=== PATIENT | female | born 2000 | race Hispanic/Latino ===

== ENCOUNTER 2021-02-25 22:27 | Emergency (ER) | payer SELFPAY ==
--- NOTE | 2021-02-25 22:42 | Emergency Department Report ---
ED Seizure HPI - General Stated Complaint: SEIZURES Time Seen by Provider: 02/25/21 22:38 - History of Present Illness Initial Comments: Patient presents by EMS for a seizure. She is actually in the process of being transferred from a facility in [place] to a psychiatric facility and [facility]. Patient had 3 seizures in route. They called the receiving facility who then refused to take the patient and stated that the patient needed to be directed to the closest emergency department. EMS came here. History is obtained from them as the patient is postictal. She does have a known history of seizures. Apparently at [place] she was on a hold because she was refusing to take her seizure medications "in order to hurt herself." She is on a 1014 which she has been provided by EMS. - Related Data Allergies Allergy/AdvReac Type Severity Reaction Status Date / Time No Known Allergies Allergy Verified 02/25/21 23:00 ED Review of Systems ROS: Stated complaint: SEIZURES Other details as noted in HPI Comment: Unobtainable due to pts medical conditions (Postictal) ED Past Medical Hx - Past Medical History Hx Seizures: Yes (On Keppra) - Family History Family history: other (Cannot be obtained from the patient secondary to postictal state) - Social History Substance Use Type: Other (Cannot be obtained for the patient secondary to postictal state) ED Physical Exam - General Limitations: Altered Mental Status (Postictal), Other (Pulse ox noted and normal) General appearance: postictal - Head Head exam: Present: atraumatic, normocephalic, normal inspection - Eye Eye exam: Present: normal appearance, EOMI. Absent: scleral icterus - ENT ENT exam: Present: mucous membranes moist, normal external ear exam - Neck Neck exam: Present: normal inspection - Respiratory Respiratory exam: Present: normal lung sounds bilaterally. Absent: respiratory distress - Cardiovascular Cardiovascular Exam: Present: regular rate, normal rhythm - GI/Abdominal GI/Abdominal exam: Present: soft - Extremities Exam Extremities exam: Present: normal capillary refill - Back Exam Back exam: Absent: CVA tenderness (R), CVA tenderness (L) - Neurological Exam Neurological exam: Present: other (Postictal) - Psychiatric Psychiatric exam: Present: other (Postictal) - Skin Skin exam: Present: warm, dry ED Course Vital Signs 02/25/21 02/25/21 02/25/21 22:49 23:00 23:11 Temperature 99.4 F Pulse Rate 114 H 108 H 110 H Respiratory 23 20 18 Rate Blood Pressure Blood Pressure 106/64 [Left] O2 Sat by Pulse 99 100 99 Oximetry 02/25/21 02/25/21 02/25/21 23:16 23:30 23:46 Temperature Pulse Rate 108 H 107 H 102 H Respiratory 21 21 19 Rate Blood Pressure 106/64 106/64 106/64 Blood Pressure [Left] O2 Sat by Pulse 100 100 100 Oximetry 02/26/21 02/26/21 00:00 00:17 Temperature Pulse Rate 101 H Respiratory 18 20 Rate Blood Pressure 105/63 Blood Pressure [Left] O2 Sat by Pulse 100 99 Oximetry - Reevaluation(s) Reevaluation #1: 02/25/21 22:41 EMS was noted. Ativan was ordered. Old records have been requested. Reevaluation #2: 02/26/21 00:50 Patient was discharged. She had had no further seizure activity. She will proceed with the 1014 on to a psychiatric facility. Critical Care Time: No Critical care attestation.: If time is entered above; I have spent that time in minutes in the direct care of this critically ill patient, excluding procedure time. ED Disposition Clinical Impression: Breakthrough seizure Disposition: PSYCHIATRIC HOSPITAL Is pt being admited?: No Condition: Stable Additional Instructions: Take your seizure medication. Return for problems.
[2021-02-25] MEDS ORDERED: LORazepam 2 MG/ML VIAL IV ONE (23:38)
[2021-02-26] MEDS ORDERED: levETIRAcetam 1000 MG/NS 0.75% 1,000 MG/100 ML BAG IV ONE (01:17)
[2021-02-26 04:34] LABS: Basophils % (Auto) 0.2 % (0.0-1.8); Eosinophils % (Auto) 0.1 % (0.0-4.3); Hematocrit 37.2 % (30.3-42.9); Hemoglobin 12.2 gm/dl (10.1-14.3); Lymphocytes # (Auto) 1.6 K/mm3 (1.2-5.4); Lymphocytes % (Auto) 18.3 % (13.4-35.0); Mean Corpuscular HGB Conc 33 % (30-34); Mean Corpuscular Volume 87 fl (79-97); Monocytes # (Auto) 0.4 K/mm3 (0.0-0.8); Monocytes % (Auto) 5.1 % (0.0-7.3); Platelet Count 259 K/mm3 (140-440); Red Blood Count 4.29 M/mm3 (3.65-5.03); Red Cell Distribution Width 13.3 % (13.2-15.2)
[2021-02-26 04:49] LABS: Blood Urea Nitrogen 12 mg/dL (7-17); Calcium 8.7 mg/dL (8.4-10.2); Hemolysis Index 8
[2021-02-26 04:53] LABS: BUN/Creatinine Ratio 30
[2021-02-26 04:56] LABS: Bilirubin,Urine NEG (Negative); Blood,Urine MOD (Negative); Color,Urine Yellow (Yellow); Mucus,Urine FEW /HPF; RBC,Urine < 1.0 /HPF (0.0-6.0); Urobilinogen,Urine < 2.0 mg/dL (<2.0)
[2021-02-26 05:04] LABS: Amphetamine Screen,Urine Negative; Cannabinoid Screen,Urine Negative; Cocaine Screen,Urine Negative; Methadone Screen,Urine Negative; Opiate Screen,Urine Negative
[2021-02-26 05:42] LABS: Benzodiazepines Screen,Urine Positive
--- NOTE | 2021-02-26 11:26 | Consultation ---
History of Present Illness - Reason for Consult Consult date: 02/26/21 Reason for consult: mental health evaluation - History of Present Psychiatric Illness Tara Monreal is a 20 year female with history Bipolar, BPD, DEZ and intermittent explosive disorder.The patient reports that she was enrobe to [facility] when she started having seizures in the ambulance and was sent to ED. They patient reports that she recently underwent and a stimulator implant for epilepsy on 02/12 and per her neurology she is not able to start new medication for a month. The patient denies any current suicidal/homicidal ideation and denies hallucinations. Collateral form patient's mother Jacqueline Garcia:She reports that she patient was having suicidal ideation the inpatient admission at [facility]. She report's that the patient has had an ongoing psychiatric issues since age 7,(mostly behavioral) and has had multiple inpatient hospitalizations. Due to a recent suicidal ideation the recommendation will be to continue referring the patient to psychiatric inpatient facility. PAST PSYCHIATRIC HISTORY Diagnoses: Bipolar, BPD, DEZ and intermittent explosive disorder. Suicide attempts or Self-harm behavior: Yes Prior psychiatric hospitalizations: Yes at multiple facilities Substance Abuse history: Patient denies Previous psychiatric medications tried: Trileptal Outpatient treatment: Yes but provider name unknown PAST MEDICAL HISTORY: Family Psychiatric History: Not available SOCIAL HISTORY Marital Status: Single Living Arrangements: Lives with mother Employment Status: unemployed Access to guns/weapons: None reported Education: 9th grade History of Abuse: None reported Legal History: None reported REVIEW OF SYSTEMS Constitutional: Negative for weight loss ENT: Negative for stridor Respiratory: Negative for cough or hemoptysis All other systems reviewed and are negative MENTAL STATUS EXAMINATION General Appearance and Behavior: Age appropriate, good hygiene, wearing appr opriate clothes, good eye contact, cooperative polite with questioning. Cooperation: Participating/engaged Psychomotor Behavior: unremarkable and within normal limits Mood:"ok" Affect and affective range: congruent with mood Thought Process: Goal directed Thought Content: Not suicidal Speech: Normal volume, Regular rate and rhythm Intellectual Functioning: Average Suicidal Ideation:Denies Homicidal Ideation: Denies Hallucinations: Denies Impulse Control: Unimpaired Insight and Judgment: Normal insight and judgment Memory: Normal Attention: Divided Orientation: Alert, oriented Assessment and Plan (1) Bipolar Current Visit: Yes Status: Acute F20.9 RECOMMENDATIONS Continue 1013 continue home meds. Risks, benefits and alternatives of medications discussed with the patient, questions answered and consent obtained from patient. PSYCHOTHERAPY: Supportive psychotherapy provided MEDICAL: Per primary team DELIRIUM PRECAUTIONS: Please re-orient patient frequently, keep lights on during the day, and minimize benzodiazepines and opiates as these medications could worsen patient's confusion. HEAD OF MARKETING ANALYTICS: Per medical team DISPOSITION: Recommend acute inpatient psychiatric hospitalization at this time. FOLLOW-UP: Will follow. Thank you for the consult. Please contact with any questions and/or concerns. Medications and Allergies Medications and Allergies Allergies Allergy/AdvReac Type Severity Reaction Status Date / Time No Known Allergies Allergy Verified 02/25/21 23:00 Mental Status Exam - Vital signs Last Vital Signs Temp 99.4 F 02/25/21 23:11 Pulse 96 H 02/26/21 07:21 Resp 16 02/26/21 07:21 BP 102/68 02/26/21 07:21 Pulse Ox 96 02/26/21 07:21 Results Result Diagrams: 02/26/21 04:15 02/26/21 04:15 Abnormal lab results 02/26/21 02/26/21 02/26/21 Range/Units 04:15 04:15 04:15 Seg Neutrophils % 76.3 H (40.0-70.0) % Creatinine 0.4 L (0.6-1.2) mg/dL Glucose 102 H (65-100) mg/dL Salicylates < 0.3 L (2.8-20.0) mg/dL Acetaminophen (10.0-30.0) ug/mL 02/26/21 Range/Units 04:15 Seg Neutrophils % (40.0-70.0) % Creatinine (0.6-1.2) mg/dL Glucose (65-100) mg/dL Salicylates (2.8-20.0) mg/dL Acetaminophen 5.0 L (10.0-30.0) ug/mL All other labs normal.
[2021-02-26] MEDS ORDERED: KEPPRA PO SCH (14:45)
[2021-02-26] MEDS ORDERED: TRILEPTAL 300 MG PO SCH (14:45)
[2021-02-26] MEDS: levETIRAcetam 500 MG TAB PO SCH ×2 (17:21→22:05)
[2021-02-26] MEDS: OXcarbazepine 300 MG TAB PO SCH ×2 (18:19→22:41)
[2021-02-26] MEDS: LACOSAMIDE PO SCH (18:20)
[2021-02-26] MEDS: LACOSAMIDE 50 MG TAB PO SCH (23:22)
[2021-02-26] MEDS: LACOSAMIDE 100 MG TAB PO SCH (23:22)
[2021-02-27] MEDS: ONFI 10 MG PO SCH ×3 (08:03→11:26)
[2021-02-27] MEDS: LACOSAMIDE PO SCH (08:04)
[2021-02-27] MEDS: levETIRAcetam 500 MG TAB PO SCH (11:28)
[2021-02-27 11:49] VITALS: BP 91/57
[2021-02-27] MEDS: LACOSAMIDE 100 MG TAB PO SCH (11:51)
[2021-02-27] MEDS: OXcarbazepine 300 MG TAB PO SCH (11:51)
[2021-02-27] MEDS: LACOSAMIDE 50 MG TAB PO SCH (11:52)
--- NOTE | 2021-02-27 11:58 | Progress Note ---
Subjective - Reason for Consult Consult date: 02/27/21 Reason for consult: suicidal ideation - Chief Complaint Chief complaint: The patient is seen resting in bed. She reports doing well, states sleep and appetitie as good. She denies any current suicidal/homicidal ideation and denies hallucinations. REVIEW OF SYSTEMS Constitutional: Negative for weight loss ENT: Negative for stridor Respiratory: Negative for cough or hemoptysis All other systems reviewed and are negative MENTAL STATUS EXAMINATION General Appearance and Behavior: Age appropriate, good hygiene, wearing appropriate clothes, good eye contact, cooperative polite with questioning. Cooperation: Participating/engaged Psychomotor Behavior: unremarkable and within normal limits Mood:"good" Affect and affective range: congruent with mood Thought Process: Goal directed Thought Content: Not suicidal Speech: Normal volume, Regular rate and rhythm Intellectual Functioning: Average Suicidal Ideation:Denies Homicidal Ideation: Denies Hallucinations: Denies Impulse Control: Unimpaired Insight and Judgment: Normal insight and judgment Memory: Normal Attention: Divided Orientation: Alert, oriented Assessment and Plan (1) Bipolar Current Visit: Yes Status: Acute F20.9 RECOMMENDATIONS Discontinue 1013 continue home meds. Risks, benefits and alternatives of medications discussed with the patient, questions answered and consent obtained from patient. PSYCHOTHERAPY: Supportive psychotherapy provided MEDICAL: Per primary team DELIRIUM PRECAUTIONS: Please re-orient patient frequently, keep lights on during the day, and minimize benzodiazepines and opiates as these medications could worsen patient's confusion. TREATING PLANT SUPERVISOR: Per medical team DISPOSITION: Recommend acute inpatient psychiatric hospitalization at this time. FOLLOW-UP: Will sign off. digital content marketing manager will provide patient with safety plan and resources. Please contact with any questions and/or concerns. Medications and Allergies Mental Status Exam - Vital signs Last Vital Signs Temp 99.4 F 02/25/21 23:11 Pulse 64 02/26/21 18:24 Resp 20 02/26/21 23:53 BP 91/57 02/27/21 11:46 Pulse Ox 98 02/27/21 11:46
== END 2021-02-27 13:08 | disposition home or self-care (01) ==
LOC: ED 22:27
DX: G40.909 Epilepsy, unspecified, not intractable, without status epilepticus (principal); Z20.822 Contact with and (suspected) exposure to COVID-19
CPT/HCPCS: 36415; 80048; 80307; 81001; 84703; 85025; 96374; 96375; 99285; J1953; J2060; U0003; 80320; G0480